=== PATIENT | male | born 1990 | race African-American/Black ===

== ENCOUNTER 2021-03-21 16:41 | Emergency (ER) | payer OTHER ==
[2021-03-21 17:27] LABS: Absolute Lymphocytes (CBC) 2.9 K/uL (0.7-4.9); Basophils % 0.5 % (0-1.3); Hematocrit 40.2 % (39.6-49.0); Lymphocytes % 31.5 % (15.3-44.8); MPV 8.9 fL (7.6-11.3); RBC Red Blood Cell Count 4.89 M/uL (4.33-5.43)
[2021-03-21 17:36] LABS: Protime INR 1.46
[2021-03-21 17:39] LABS: Arterial Blood Carboxyhemoglob 1.3 % (0-1.5); Blood Gas Oxyhemoglobin 92.7 % (94-97); Blood O2 Saturation 94.7 % (92-98.5)
[2021-03-21] MEDS ORDERED: LEVALBUTEROL 1.25 MG/3 ML NEB ONE (17:39)
[2021-03-21] MEDS ORDERED: NA CHLORIDE 0.9% 50 ML ONE (17:39)
[2021-03-21] MEDS ORDERED: dexAMETHasone 10 MG/ML VIAL ONE (17:39)
[2021-03-21 17:53] LABS: Albumin 3.3 g/dL (3.4-5.0); Bilirubin Direct 0.5 mg/dL (0-0.2); Magnesium 2.4 mg/dL (1.8-2.4); Potassium 4.3 mmol/L (3.5-5.1); Protein, Total 7.7 g/dL (6.4-8.2); Troponin (Emerg Dept Use Only) 0.04 ng/mL (0.0-0.045)
--- NOTE | 2021-03-21 18:34 | RAD REPORT ---
EXAM DESCRIPTION: Brianda Single View03/21/2021 5:59 pm CLINICAL HISTORY: Shortness of breath COMPARISON: none FINDINGS: Mild right middle lobe opacity. Remainder lungs appear clear. The heart is normal size. The zoila are prominent IMPRESSION: The zoila are prominent which could be secondary to lymphadenopathy or enlarged pulmonar y arteries. CT chest recommended
--- NOTE | 2021-03-21 18:42 | RAD REPORT ---
EXAM DESCRIPTION: CT - Chest For Pe Angio - 03/21/2021 6:20 pm CLINICAL HISTORY: Shortness of breath COMPARISON: None. TECHNIQUE: Dynamically enhanced axial 3 mm thick images of the chest were obtained during administra tion of <100> mL Isovue 370 IV contrast. Coronal and oblique reconstruction images were generated and reviewed. Exam utilizes a protocol for optimal evaluation of pulmonary arterial tree. Maximum intensity projections 3D imaging was utilized All CT scans are performed using dose optimization technique as appropriate and may include automated exposure control or mA/KV adjustment according to patient size. FINDINGS: Extensive thrombus is present within the left main pulmonary artery extending into the lef t upper and left lower lobe pulmonary artery. Small amount of thrombus is present within the main pul monary artery. Extensive thrombus is present within the right lower lobe and right interlobar pulmonary arteries. Th rombus is also present within right upper and middle lobe pulmonary arteries A thoracic aortic aneurysm is not noted. A pleural effusion is not seen. A pericardial effusion is not seen. Mild bilateral pulmonary opacities may indicate infarction. Right ventricular strain is present IMPRESSION: Large amount of bilateral pulmonary emboli
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
[2021-03-21] MEDS ORDERED: HEPARIN 5000 UNIT/ML 1 ML VIAL ONE (19:38)
[2021-03-21] MEDS ORDERED: HEPARIN/D5W 25,000 UNIT/500 ML BAG IV ONE (19:38)
[2021-03-22 02:03] VITALS: TEMP 98.4
[2021-03-22 02:18] VITALS: BP 116/81; O2SAT 94
--- NOTE | 2021-03-22 12:52 | EKG ---
Test Date: 2021-03-21 Test Time: 17:09:32 Account Specialist: MIRANDA MEASUREMENT RESULTS: Intervals: Rate: 122 MI: 140 QRSD: 82 QT: 324 QTc: 461 [place]: P: 76 MI: 140 QRS: 110 T: 40 INTERPRETIVE STATEMENTS: Sinus tachycardia Left posterior fascicular block Abnormal ECG No previous ECG available for comparison Electronically Signed On 03-22-21 12:52:02 CDT by Aníbal Gonzalez
== END 2021-03-22 01:58 | disposition short-term general hospital (02) ==
LOC: ER 16:41
DX: I26.99 Other pulmonary embolism without acute cor pulmonale (principal)
CPT/HCPCS: 93005; 85025; 80048; 36415; 83735; 85610; 85379; 80076; 85730; 84484; 83880; 71275; 71045; 82805; Q9967; J1644; 96365; 96366; 96375; 99285; J1100